=== PATIENT | male | born 1945 | race American Indian/Alaskan Native ===

== ENCOUNTER 2018-10-11 09:19 | Day surgery (SDC) | payer MEDICARE ==
[2018-10-11] MEDS ORDERED: LACTATED RINGERS 1,000 ML IV SCH ×2 (11:40→13:00)
[2018-10-11] MEDS ORDERED: SUBLIMAZE ONE (12:18)
[2018-10-11] MEDS ORDERED: DIPRIVAN 10 MG/ML IV ONE (12:19)
[2018-10-11] MEDS ORDERED: ROBINUL ONE (12:21)
[2018-10-11] MEDS ORDERED: XYLOCAINE MPF 2% ONE (12:21)
--- NOTE | 2018-10-11 12:26 | Anesthesia Consultation ---
Anesthesia Consult and Med Hx Date of service: 10/11/18 - Airway Anesthetic Teeth Evaluation: Good ROM Head & Neck: Adequate Mental/Hyoid Distance: Adequate Mallampati Class: Class II Intubation Access Assessment: Good - Pulmonary Exam CTA: Yes - Cardiac Exam Cardiac Exam: RRR - Pre-Operative Health Status ASA Pre-Surgery Classification: ASA3 Proposed Anesthetic Plan: General - Pulmonary Hx Smoking: No Hx Asthma: No COPD: No Hx Sleep Apnea: Yes (DX SLEEP APNEA WITH CPAP USE.) - Cardiovascular System Hx Hypertension: Yes (X 15 YRS) Hx Heart Attack/AMI: No Hx Angina: Yes (RARE-TOOK NITRO 1 YR AGO) Hx Pacemaker: No - Central Nervous System CVA: No Hx Back Pain: Yes Hx Psychiatric Problems: No - Gastrointestinal Hx Ulcer: Yes - Endocrine Hx Renal Disease: No - Other Systems Hx Cancer: Yes
[2018-10-11] MEDS ORDERED: DILAUDID IV PRN (12:27)
[2018-10-11] MEDS ORDERED: NARCAN 0.4 MG/1 ML IV PRN (12:27)
[2018-10-11] MEDS ORDERED: ANCEF/STERILE WATER 2 GM/20 ML 2 GM/20 ML SYRINGE IV ONE (12:27)
[2018-10-11] MEDS ORDERED: DEMEROL IV PRN (12:27)
[2018-10-11] MEDS ORDERED: SUBLIMAZE IV PRN (12:27)
[2018-10-11] MEDS ORDERED: ZOFRAN IV PRN (12:27)
--- NOTE | 2018-10-11 12:27 | Anesthesia Day of Surgery ---
Anesthesia Day of Surgery - Day of Surgery Patient Examined: Yes Patient H&P Reviewed: Yes Patient is NPO: Yes Beta Blockers: No Cardiac Clearance: No Pulmonary Clearance: No
[2018-10-11] MEDS ORDERED: NACL 0.9% 1000 ML 1,000 ML ONE (12:28)
[2018-10-11] MEDS ORDERED: PEPCID IV ONE (12:34)
[2018-10-11] MEDS ORDERED: ANCEF/STERILE WATER 2 GM/20 ML IV NR (13:00)
[2018-10-11] MEDS ORDERED: DILAUDID ONE (13:05)
[2018-10-11] MEDS ORDERED: ZOFRAN ONE (14:17)
[2018-10-11] MEDS ORDERED: LASIX ONE (14:31)
--- NOTE | 2018-10-11 14:40 | Post Operative Note ---
Date of procedure: 10/11/18 Pre-op diagnosis: cap Post-op diagnosis: same Findings: 33 gram gland Procedure: cysto crossing watchman ablation prostate Anesthesia: GETA Surgeon: LEBRON MENDEZ Estimated blood loss: minimal Pathology: none Condition: stable Disposition: PACU
--- NOTE | 2018-10-11 14:41 | Discharge Summary ---
Short Stay Discharge Plan Activity: other (no straining ) Weight Bearing Status: Full Weight Bearing Diet: low fat, low cholesterol, low salt Wound: open to air (ice in RR and 24 hrs ) Special Instructions: other (ice and mccoy care ) Durable Medical Equipment Needed Upon Discharge: other (mccoy ) Follow up with: SPENCER MATOS MD [Primary Care Provider] - 7 Days LEBRON MENDEZ MD [Staff Physician] - 7 Days
[2018-10-11] MEDS ORDERED: VERSED ONE ×2 (14:49→15:17)
[2018-10-11] MEDS ORDERED: VERSED IV ONE (15:45)
--- NOTE | 2018-10-11 16:32 | Operative Report ---
PREOPERATIVE DIAGNOSIS: Adenocarcinoma of the prostate being under surveillance. POSTOPERATIVE DIAGNOSIS: Adenocarcinoma of the prostate being under surveillance. PROCEDURE: Cryosurgical ablation of prostate. SURGEON: Silvio Centeno MD ANESTHESIA: General. FINDINGS: This is a gentleman who had a TURP many years ago, who had a small focus of prostate cancer under surveillance. His PSA has been going up. Biopsy showed prostate cancer, right lobe, he now presents for treatment. DESCRIPTION OF PROCEDURE: The patient was brought to the operating room and placed on the operating table. Following induction of anesthesia, placed in lithotomy position, prepped and draped in usual sterile fashion. Escalera catheter was easily inserted. Ultrasound was placed and good visualization of the prostate was obtained. The gland measured approximately 33 grams. There was a little asymmetry in the gland, but no extracapsular extension. At this point, we measured and placed a gantry and placed the ultrasound and had good visualization of the gland. Probes 1 and 2 were placed after all the probes were checked and functioning. Probes 1 and 2 were placed ____ temperature probe was placed in external sphincter was placed. This was done without difficulty. Based on the anatomy, he was approximately 260 pounds. We had to put the grid flush against his perineum. We elected to do 4 probes on the right side because that was the side we treating and two in the left. We placed a probe 2 on the right, probes 3 and then 5. We placed 4 and 6 on the left. Excellent visualization. It measured about 4 cm throughout the gland. Catheter was removed. Flexible cystoscopy showed no urethral injury and a wire coiled in the bladder and the warmer which was functioning was placed. At this point, we rechecked the gland. We had to reposition the cryoprobes a little more inside the gland because it moved a little bit distally. The patient tolerated the procedure well. The freezing was accomplished from 1, 2 and 4 and then we canned down to 3 and 5 and 6. Excellent freeze was obtained, especially in the right side more than the left, but we had the whole gland frozen much more on the right. At this point, a thaw was carried out, secondary freeze was carried out in a symmetrical fashion after we rechecked the probes and the second thaw was carried after that was carried out we had full thaw 20-minute warmer and then we removed the warmer and placed a 20-Bruneian Coude. The patient tolerated the procedure well. Catheter irrigated freely. Family notified, brought to recovery room. Minimal blood loss in stable condition. JOB# [id number] TANIA/GENARO
[2018-10-11] MEDS ORDERED: DITROPAN PO ONE (17:16)
--- NOTE | 2018-10-11 17:36 | Post Anesthesia Evaluation ---
- Post Anesthesia Evaluation Patient Participated: Yes Airway Patent: Yes Stable Respiratory Function: Yes Nausea/Vomiting: No Temp > 96.8F: Yes Pain Manageable: Yes Adequeate Hydration: Yes Anesthesia Complications: No
[2018-10-11 19:14] VITALS: BP 145/74
== END 2018-10-11 09:20 | disposition home or self-care (01) ==
LOC: OR 09:19
PROVIDERS: ATTEND Urology
DX: C61 Malignant neoplasm of prostate (principal); I20.8 Other forms of angina pectoris; E78.00 Pure hypercholesterolemia, unspecified; I10 Essential (primary) hypertension; G47.30 Sleep apnea, unspecified; K21.9 Gastro-esophageal reflux disease without esophagitis; Z98.890 Other specified postprocedural states; Z83.3 Family history of diabetes mellitus; Z84.1 Family history of disorders of kidney and ureter; Z79.899 Other long term (current) drug therapy; Z79.82 Long term (current) use of aspirin; Z79.84 Long term (current) use of oral hypoglycemic drugs; Z98.49 Cataract extraction status, unspecified eye; Z86.2 Personal history of diseases of the blood and blood-forming organs and certain disorders involving the immune mechanism; Z82.49 Family history of ischemic heart disease and other diseases of the circulatory system
CPT/HCPCS: 36415; 55873; 82962; 84132; C2618; J0690; J1170; J1940; J2250; J2405; J2704; J3010; J7030; J7120